=== PATIENT | male | born 1950 | race Caucasian/White ===

== ENCOUNTER 2017-08-23 20:03 | Inpatient (IN) | payer OTHER, MEDICARE, SELFPAY ==
[2017-08-23] VITALS (10 sets, daily range): BP systolic 131–137; BP diastolic 75–90; PULSE 68–90; RESP 12–16; TEMP 36.7–36.9; O2SAT 96–100; BMI 20.3
--- NOTE | 2017-08-23 20:34 | CT_ITS ---
STUDY: CT BRAIN WITHOUT CONTRAST REASON FOR EXAM: Male, 67 years old. Slurred speech, now resolved RADIATION DOSAGE (If Supplied By Facility): CTDIvol = ( 44.99 ) mGy, DLP = ( 812.98 ) mGycm TECHNIQUE: Transaxial CT imaging of the brain was performed without administration of intravenous contrast material. Individualized dose optimization techniques were used for this CT. COMPARISON: None. FINDINGS: The soft tissues are unremarkable. The osseous structures are unremarkable. Normal size ventricles and extra-axial spaces for the patient's age. The white matter tracts are unremarkable. The basal ganglia and thalami are unremarkable. No abnormalities are seen in the brainstem. The cerebellum is unremarkable. There is no intracranial hemorrhage. There is asymmetric hypodensity in the left occipital and posterior parietal lobes. The visualized sinuses are unremarkable. CT/Brain/Head without Contrast IMPRESSION: There is asymmetric hypodensity in the left occipital and posterior parietal lobes, worrisome for acute or subacute ischemia. There is no acute hemorrhage. N.B. : The above information has been verbally conveyed by Shanti Lord MD to Abhinav Gunn, Referring Physician, on 08/23/2017 22:00:30 (ET). Electronically Signed: Shanti Lord MD at 22:02 EDT Tel Direct: [phone], Service support , N.B. : The above information has been verbally conveyed by Shanti Lord MD to Abhinav Gunn, Referring Physician, on 08/23/2017 22:00:30 (ET).
--- NOTE | 2017-08-23 20:34 | EKG12_ITS ---
Test Reason : WEAKNESS Blood Pressure : / mmHG Vent. Rate : 071 BPM Atrial Rate : 071 BPM P-R Int : 106 ms QRS Dur : 122 ms QT Int : 426 ms P-R-T Axes : 063 080 062 degrees QTc Int : 462 ms Sinus rhythm with short CT Right bundle branch block Abnormal ECG Confirmed by GENE DAN, ANGELA ([id number]), editor department JOSH HUMPHRIES ([id number]) on 08/26/2017 4:10:10 PM Referred By: CHUY Confirmed By:ANGELA MILLS MD
--- NOTE | 2017-08-23 20:34 | RAD_ITS ---
STUDY: X-RAY CHEST REASON FOR EXAM: Male, 67 years old. Pain TECHNIQUE: Frontal views of the chest were obtained. COMPARISON: May 01, 2016 FINDINGS: The lungs are adequately aerated. There are no focal airspace opacities. There is no demonstrated pleural abnormality. The cardiac silhouette is normal in size. The mediastinum and hilar regions are unremarkable. Normal visualized pulmonary arteries. Normal visualized aortic arch and descending thoracic aorta. The thoracic spine is unremarkable. The visualized ribs, clavicles, and shoulders are unremarkable. There may be a hiatal hernia. RAD/Chest 1 View IMPRESSION: No acute cardiopulmonary abnormalities or changes. Electronically Signed: Shanti Lord MD at 21:18 EDT Tel Direct: [phone], Service support ,
--- NOTE | 2017-08-23 20:34 | ED.VISSUMM ---
- ER Visit Summary Date of Service: 08/23/17 Chief Complaint: Slurred speech, nausea History of Present Illness: The patient is a 67 M history of esophageal cancer diagnosed June 2016, esophagectomy in October 2016. Followed by [facility] in [place]. Does see Dr. Streeter in [facility]. Did do chemoradiation. No current treatment. Intermittent nausea for 3 days. No abdominal pain. Currently resolved. No vomiting. Intermittent loose stools recently. No recent antibiotics. No fevers. Here with significant other who was a nurse, states he had slurred speech lasting 5 minutes from 725-730. There is no hemiparesis or facial tingling. No stroke history. He does take a baby aspirin. Currently denies any symptoms. Physical Examination: General: Alert and oriented ?3, no acute distress HEENT: Normocephalic, atraumatic. Moist mucosa membranes Neck: supple, nontender. Cardiovascular: Regular rate and rhythm, no murmurs Respiratory: Normal breath sounds, symmetric, no distress Abdomen: Soft, nontender, nondistended. Normal bowel sounds Extremities: Nontender, no edema, pulses intact ?4 Neuro: no focal neurological deficits. NIH equals 0 Test Results: EKG sinus rate of 71, right bundle branch block, no ST or T-wave changes. Hemoglobin 12.6. INR 1.1. Troponin less than 0.02. Chest x-ray negative. CT head and discussion radiology concern for left occipital and left posterior parietal subacute versus acute hypodensity. Emergency Department Course and Treatment: Patient's symptoms currently resolved. Primary complaint today is transient slurred speech lasting 5 minutes. NIH equals 0. EKG is sinus rhythm with chronic right bundle branch block. Stroke workup discussion radiology reported acute versus subacute left occipital and posterior left parietal hypodensity concerning for stroke. States did not correlate with his slurred speech. In discussion with spouse and patient he had a headache a week ago that was diffuse. There is no head injuries. No visual changes. Has been no memory deficits. He has no stroke history. Currently hospitalist on page for admission for further workup. [place] was contacted states they have no beds. Treatment Plan: [] Disposition: Admission Impression: 1. CVA This note was generated with [employer] ([employer]ation software. It may contain incorrect words, spelling, and punctuation that were not noted in review of the chart prior to signing ED Disposition - Plan for ED Patient: Disposition: Acute Care Hospital [facility] Chief Complaint: Abd Pain Diagnosis: CVA (cerebral vascular accident) Referrals: Care Physician,No Primary [NON-STAFF] -
[2017-08-23 20:52] LABS: Absolute Lymphocyte Count 1.01 X10^3/ul (0.83-4.51); Absolute Neutrophil Count 4.1 X10^3/uL (2.0-7.7); Basophil# 0.02 X10^3/uL; Basophil% 0.3 % (0-1); Eosinophil# 0.11 X10^3/uL; Eosinophils% 1.9 % (0-5); Hematocrit 37.1 % (40-54); Hemoglobin 12.6 g/dl (13.0-16.5); Lymphocyte # 1.01 X10^3/ul (4.0); Lymphocyte % 17.6 % (19-41); Mean Corpuscular Hgb 31.3 pg (27.0-32.0); Mean Corpuscular Volume 92.1 fL (80-94); Mean Platelet Vol. 8.4 fl (6.2-12.0); Monocyte# 0.45 X10^3/uL; Monocyte% 7.8 % (0-10); Neutrophil # 4.14 X10^3/uL (2.7-7.7); Neutrophil % 72.2 % (47-70); POSITIVE COUNT NO; POSITIVE DIFFERENTIAL NO; POSITIVE MORPHOLOGY NO; Platelet Count 222 K/mm3 (150-450); RBC Distribution Width CV 11.9 % (11.6-14.6); RBC Distribution Width SD 40.3 fl (35.1-43.9); Red Blood Count 4.03 M/mm3 (4.6-6.2); White Blood Count 5.7 K/mm3 (4.4-11.0)
[2017-08-23 20:59] LABS: International Normalized Ratio 1.1; Prothrombin Time (Protime)PT. 14.2 SECONDS (11.7-14.9)
[2017-08-23 21:00] LABS: Partial Thromboplast Time 28.9 Seconds (24.1-36.2)
[2017-08-23 21:37] LABS: Anion Gap 8 (5-15); BUN 15 mg/dL (7-18); Calcium,Total 8.8 mg/dL (8.5-10.1); Chloride 105 mmol/L (98-107); Creatinine, Serum 0.68 mg/dL (0.70-1.30); EST Glomerular Filtration Rate 123 mL/min (>60); Est Glom Filt Rate - Afr Amer 149 mL/min (>60); Estimated Creatinine Clearance 63.47 ml/min; Glucose 83 mg/dL (74-106); Potassium 3.6 mmol/L (3.5-5.1); Sodium Level 139 mmol/L (136-145)
--- NOTE | 2017-08-23 22:14 | ED.RN ---
CALLED [facility] TO SEE IF THEY COLD TAKE HIM A PATIENT AND THEY SAID THEY ARE NOT ACCEPTING ANY PATIENTS AT THIS TIME.
--- NOTE | 2017-08-23 22:56 | HP.PCM_ITS ---
Problem List (1) HTN (hypertension) Status: Chronic (2) CVA (cerebral vascular accident) Status: Acute (3) Lipidemia Status: Acute History of Present Illness Date of Admission: 08/23/17 Chief Complaint: CVA The patient is a 67 year old male w/ h/o HTN, esophageal cancer s/p esophagectomy in October 2016 and chemoradiation, and lipidemia admitted for CVA. Last Thursday, he had severe headache which he never had before. Nothing made the headache better or worse. Headache spontaneously resolved. He had intermitted nausea x 3 days and that too resolved. He also had loose stool. This evening hours when he tried to get up from sitting position, he became lightheaded and slurred his speech. However, when he sat back down, he noted improvement of his symptoms and symptoms resolved when he lay down. Symptoms lasted for a few minutes and spontaneously resolved. Past Medical History Past Medical History (Chronic Problems): Chronic Problems HTN (hypertension) (Chronic) Allergies Sulfa (Sulfonamide Antibiotics) Allergy (Verified 08/23/17 20:09) Nausea/Vom/Diarrhea Home Medications: Ambulatory Orders Medication Instructions Recorded Aspirin 81 mg PO DAILY 05/01/16 Atorvastatin Calcium [Lipitor] 10 mg PO DAILY 05/01/16 Multivitamin [Animal Shapes] 1 each PO DAILY 05/01/16 Ubidecarenone [Co Q-10] 100 mg PO DAILY 05/01/16 Ascorbic Acid [Vitamin C] 250 mg PO BID 08/23/17 Ferrous Sulfate 325 mg PO BIDCM 08/23/17 Ondansetron [Zofran] 8 mg PO Q8H PRN PRN 08/23/17 Lives: Spouse/ Significant Other Smoking Status: Former smoker Alcohol: None Drugs: None - *Family History Maternal History Items: No pertinent history Review of Systems Constitutional: Denies: Chills, Fever, Weight Change HEENT: Denies: Head Aches, Sinus Congestion, Sinus Drainage Cardiovascular: Denies: Chest Pain, Palpitations Respiratory: Denies: Cough, Shortness of breath at rest, Sputum production Gastrointestinal: Denies: Abdominal Pain, Nausea, Vomiting Genitourinary: Denies: Dysuria Musculoskeletal: Denies: Joint Pain, Joint Tenderness Skin: Denies: Rash, Wounds Neurological: Reports: Slurred speech. Denies: Focal weakness, Numbness, Tingling Psychiatric: Denies: Anxiety, Depression, Homicidal Ideations, Suicidal Ideations Hematologic/ Lymphatic: Denies: Easy Bruising, Easy Bleeding VTE Information - Inpt Only VTE Present on Admission: No VTE Mechan Device Prophylaxis: SCD's VTE Pharm Prophylaxis ordered?: Yes Patient Problems: Active and Suspected Problems CVA (cerebral vascular accident) (Acute) Lipidemia (Acute) - Physical Exam General: Alert, Oriented x3, Cooperative HEENT: Atraumatic, PERRLA, EOMI, Normocephalic Neck: Supple, No JVD, Negative Carotid Bruits Lungs: Clear to auscultation, Normal air movement Cardiovascular: Regular rate, No murmurs Abdomen: Bowel Sounds Present, Soft, Non Tender Extremities: No edema, Capillary Refill Less than 3 Seconds Skin: No rashes, No breakdown Musculoskeletal: No Tenderness to Palpation of Joints or Extremities Neurological: Cranial nerves II-XII grossly intact Psych/Mental Status: Normal Affect, Appropriate Vital Signs Temp Pulse Resp BP Pulse Ox 98.5 F 68 14 135/90 H 98 08/23/17 20:04 08/23/17 22:30 08/23/17 22:30 08/23/17 22:30 08/23/17 22:30 Oxygen Delivery Method Room Air Weight: 62.596 kg Body Mass Index (BMI) 20.3 Laboratory Tests Past 24 Hrs 08/23/17 08/23/17 08/23/17 20:40 20:40 20:40 WBC 5.7 RBC 4.03 L Hgb 12.6 L Hct 37.1 L MCV 92.1 MCH 31.3 MCHC 34.0 RDW 11.9 RDW Differential 40.3 Plt Count 222 MPV 8.4 Immature Gran % (Auto) 0.200 Neut % (Auto) 72.2 H Lymph % (Auto) 17.6 L Greer % (Auto) 7.8 Eos % (Auto) 1.9 Baso % (Auto) 0.3 Absolute Neuts (auto) 4.1 Absolute Lymphs (auto) 1.01 Total Counted Not Reportable PT 14.2 INR 1.1 APTT 28.9 Sodium 139 Potassium 3.6 Chloride 105 Carbon Dioxide 26.0 Anion Gap 8 BUN 15 Creatinine 0.68 L Estim Creat Clear Calc 63.47 Est GFR (MDRD) Af Amer 149 Est GFR (MDRD) Non-Af 123 BUN/Creatinine Ratio 22.0 H Glucose 83 Calcium 8.8 Troponin I < 0.02 Assessment/Plan Active and Suspected Problems CVA (cerebral vascular accident) (Acute) Lipidemia (Acute) 67 year old male w/ h/o HTN, esophageal cancer s/p esophagectomy in October 2016 and chemoradiation, and lipidemia admitted for CVA. 1) Slurred speech / dizziness: CVA vs orthostatic hypotension. CT brain disclosed asymmetric hypodensity in the left occipital and posterior parietal lobes, worrisome for acute or subacute ischemia. Will get MRI, ECHO and carotid. Will start ASA and statin. Consult neuro. 2) HTN: Resume home meds. Allow for permissive HTN. 3) H/o esophageal cancer s/p esophagectomy in October 2016 and chemoradiation: Supportive care. 4) Non sustained SVT: K 3.8 Will get magnesium. Will get trop x 1 Will consider betablocker if reoccurring. Monitor for now. 5) Prophylaxis: SCD / heparin
[2017-08-24] VITALS (14 sets, daily range): BP systolic 98–142; BP diastolic 61–86; PULSE 66–94; RESP 18; TEMP 36.3–37.3; O2SAT 96–99
[2017-08-24] MEDS: 0.9% Normal Saline 1,000 ML 100 ML IV ×3 (00:36→22:53)
[2017-08-24 04:09] LABS: Hematocrit 35.3 % (40-54); Hemoglobin 12.1 g/dl (13.0-16.5); Mean Corp Hgb Conc 34.3 g/gl (32-36); Mean Corpuscular Hgb 31.2 pg (27.0-32.0); Mean Platelet Vol. 8.4 fl (6.2-12.0); Platelet Count 246 K/mm3 (150-450); RBC Distribution Width SD 39.6 fl (35.1-43.9); Red Blood Count 3.88 M/mm3 (4.6-6.2); White Blood Count 5.6 K/mm3 (4.4-11.0)
[2017-08-24 04:10] LABS: Scan Indicated on CBC? Y/N NO
[2017-08-24] MEDS: Acetaminophen 325 MG Tablet 650 MG PO ×2 (04:17→20:32)
[2017-08-24 04:24] LABS: Anion Gap 10 (5-15); BUN 12 mg/dL (7-18); BUN/Creat Ratio 20.3 RATIO (10-20); Calcium,Total 8.9 mg/dL (8.5-10.1); Chloride 106 mmol/L (98-107); Cholesterol 87 mg/dL (200); Creatinine, Serum 0.59 mg/dL (0.70-1.30); EST Glomerular Filtration Rate 145 mL/min (>60); Est Glom Filt Rate - Afr Amer 176 mL/min (>60); Estimated Creatinine Clearance 62.25 ml/min; Glucose 85 mg/dL (74-106); High Density Lipoprotein 54 mg/dL; Potassium 3.8 mmol/L (3.5-5.1); Sodium Level 140 mmol/L (136-145); Triglycerides 48 mg/dL; Very Low Density Lipoprotein 10 mg/dL (5-40)
[2017-08-24 05:54] LABS: Magnesium 2.1 mg/dL (1.6-2.6)
--- NOTE | 2017-08-24 05:55 | CDU_ITS ---
Reason For Study: CVA Rt. Velocities/BP Lt. Velocities/BP Prox CCA 74/16 cm/sec. Prox CCA 83/17 cm/sec. Mid CCA 79/18 cm/sec. Mid CCA 105/25 cm/sec. Dist CCA 71/19 cm/sec. Dist CCA 85/16 cm/sec. Prox ICA 74/28 cm/sec. Prox ICA 110/35 cm/sec. Mid ICA 69/28 cm/sec. Mid ICA 145/46 cm/sec. Dist ICA 79/33 cm/sec. Dist ICA 93/28 cm/sec. Rt. ICA/CCA = 1.0. Lt. ICA/CCA = 1.4. Prox ECA 88/13 cm/sec. Prox ECA 112/17 cm/sec. Rt. Vert. 34/1 cm/sec. Lt. Vert. 81/20 cm/sec. Right Extracranial There is intimal thickening but no significant atherosclerotic plaque noted in the right common carotid artery. There is intimal thickening but no significant atherosclerotic plaque noted in the right internal carotid artery. There is intimal thickening but no significant atherosclerotic plaque noted in the right external carotid artery. Antegrade flow is noted in the right vertebral artery. Left Extracranial There is intimal thickening but no significant atherosclerotic plaque noted in the left common carotid artery. There is heterogeneous, irregular atherosclerotic plaque noted in the left internal carotid artery. There is heterogeneous, irregular atherosclerotic plaque noted in the left external carotid artery. Antegrade flow is noted in the left vertebral artery. There is heterogeneous, irregular atherosclerotic plaque noted in the left bulb. Procedure Carotid Duplex 70200. Exam performed portable in patient room. Interpretation Summary No significant atherosclerotic plaque or stenosis noted in the right internal carotid artery. Mild (<50%) stenosis left extracranial internal carotid. Flow within the vertebral arteries is antegrade bilaterally. Ordering Physician: Heath Lla Performed By: Darlene Melendez, RDREID, RVT
--- NOTE | 2017-08-24 05:55 | ECHOD_ITS ---
Reason For Study: TIA/CVA Procedure This was a 2D Doppler, Color Flow transthoracic echocardiogram. Exam performed portable in patient room. Left Ventricle Normal LV size. Left ventricular systolic function is normal. The estimated ejection fraction is 60 %. No regional wall motion abnormalities noted. Right Ventricle Normal RV size. Normal systolic function. Atria Normal left atrium. Normal right atrium. Bubble contrast study negative for right to left interatrial shunt. Mitral Valve Normal mitral valve. Tricuspid Valve Normal tricuspid valve. Mild tricuspid valve insufficiency. Pulmonary artery systolic pressure is 27 mmHg. Aortic Valve Normal aortic valve. Trisinus/trileaflet aortic valve. Pulmonic Valve Normal pulmonic valve. Great Vessels Normal aortic root. The pulmonary artery is normal size. Normal inferior vena cava. Pericardium/Pleural No pericardial effusion. Medication Performed a rapid injection of agitated mix of 9 cc saline and 1cc air to assess for atrial septal defect. MMode/2D Measurements & Calculations LVIDd: 4.4 cm IVSd: 0.80 cm Ao root diam: 3.6 cm LVIDs: 3.0 cm LVPWd: 0.83 cm LA dimension: 3.8 cm RVDd: 3.0 cm FS: 32.1 % LAV(MOD-bp): 37.7 ml LAV(MOD-bp) Indexed: 21.4 ml/m2 LA A4 area: 15.2 cm2 RA A4 area: 13.9 cm2 LAV(MOD-sp2): 26.6 ml LAV(MOD-sp4): 43.7 ml Doppler Measurements & Calculations MV E max bartolome: 81.2 cm/sec Lat Peak E' Bartolome: 7.5 cm/sec Med Peak E' Bartolome: 8.5 cm/sec MV A max bartolome: 75.1 cm/sec E/E' lat: 10.8 E/E' med: 9.6 MV E/A: 1.1 Ao V2 max: 134.8 cm/sec LV V1 max: 102.7 cm/sec PA V2 max: 111.7 cm/sec Ao max P.3 mmHg LV V1 max P.2 mmHg TR max bartolome: 236.4 cm/sec TR max P.7 mmHg Interpretation Summary Normal LV size. Left ventricular systolic function is normal. The estimated ejection fraction is 60 %. Bubble contrast study negative for right to left interatrial shunt. Mild tricuspid valve insufficiency. Pulmonary artery systolic pressure is 27 mmHg. Ordering Physician: Heath Lal Performed By: Rika Alegria RDCS
--- NOTE | 2017-08-24 06:56 | MRI_ITS ---
STUDY: MRI BRAIN WITHOUT CONTRAST REASON FOR EXAM: Male, 67 years old. Headache, dizziness and blurred vision. TECHNIQUE: Standardized multiplanar fat and water weighted pulse sequences were obtained. COMPARISON: None. FINDINGS: There is mild cerebral atrophy with widening of the extra-axial spaces and ventricular dilatation. There are a limited number of small white matter hyperintensities, distributed throughout the deep white matter tracts of the cerebral hemispheres, consistent with mild chronic white matter ischemic changes. There is a restricted diffusion within the medial and posterior left temporal lobe and left occipital lobe consistent with an acute infarct. Normal T2* images of the brain without demonstrated susceptibility artifact. There is no demonstrated hemosiderin stain. Normal bilateral basal ganglia. Normal thalami. There is no extra-axial fluid accumulation. Normal flow voids within the major intracranial circulation suggesting patency by spin echo criteria. Normal sella turcica, pituitary gland, infundibular stalk, optic chiasm and hypothalamus. Normal tectal plate and pineal gland. Normal midbrain, wanda and medulla. There are mild involutional changes of the cerebellum. There are large basal cisterns. Normal bilateral temporal bones. Normal bilateral internal auditory canals. No demonstrated orbital abnormality, within the constraints of a routine brain study. There is mucoperiosteal inflammatory disease of the paranasal sinuses consistent with mild chronic sinusitis. Normal calvarium and skull base. Normal visualized soft tissue structures. Normal visualized upper cervical spine. MRI/Brain without Contrast IMPRESSION: 1. Involutional changes of the brain, as described above. 2. Acute left posterior cerebral artery territory infarct. Electronically Signed: Claudine Neal MD at 8:22 EDT , Service support ,
--- NOTE | 2017-08-24 07:45 | PCM.PROGNOTE ---
Patient Problems: Active and Suspected Problems CVA (cerebral vascular accident) (Acute) Lipidemia (Acute) Stroke (Acute) Subjective: Patient is a 67-year-old male with a past medical history of hypertension, esophageal cancer (status post esophagectomy in October 2016), and hyperlipidemia who presented to the emergency room department at [facility] on 08/23/2024 complaining of lightheadedness and slurred speech when he stood up. When he sat down and his symptoms improved. He related that he had a severe headache 1 week prior to presentation to the emergency room and this was followed by nausea and loose stool for 3 days. Nausea, cephalgia and loose stool had all resolved prior to presenting to the emergency room. Vital signs at presentation to the emergency room were temperature 98.5, pulse rate 84, blood pressure 133/85, respiratory rate 16 and he was 98% saturated on room air. White blood cell count was normal at 5.7 with an unremarkable differential. Hemoglobin was 12.6 with normochromic normocytic indices. Platelet count was normal. Electrolytes were normal and the BUN was 15 with a creatinine of 0.68. Serial troponins were negative ?3. Brain CT showed an asymmetric hypodensity in the left occipital and posterior parietal lobes suspicious for acute or subacute ischemia. He was admitted to the hospital with a diagnosis of suspected CVA and orthostatic hypotension. He was started on aspirin and a statin. Neurology was consulted. MRI of the brain, echo and carotid studies were ordered. Afebrile since admission. Blood pressures have ranged from 108/70 -137/90. Blood pressure did drop to 108/70 from 125/76 with standing. Lipid panel showed triglycerides of 48, cholesterol of 87, LDL of 23 and an HDL of 54. MRI of the brain has been done and the results are pending. - Physical Exam General: Alert, Oriented x3, Cooperative, No apparent distress, - - denies lightheadedness. He did ambulate today and thinks he did well. HEENT: Atraumatic, PERRLA, EOMI, Normocephalic Oral: Moist Mucosa Neck: Supple, Negative Carotid Bruits, - - Carotids have brisk upstroke and good pulse volume bilaterally Lungs: Clear to auscultation Cardiovascular: Regular rate, Regular Rhythm, Normal S1, Normal S2, No Gallop, - - Telemetry shows NSR with a run of what appears to be SVT......seems to have started with a PAC it was asymptomatic Abdomen: Bowel Sounds Present, Soft, Non Tender, Non-Distended Extremities: No edema Neurological: Cranial nerves II-XII grossly intact, Neuro grossly intact Psych/Mental Status: Appropriate Vital Signs Temp Pulse Resp BP Pulse Ox 97.4 F L 73 18 125/76 H 96 08/24/17 04:15 08/24/17 04:15 08/24/17 04:15 08/24/17 04:15 08/24/17 04:15 Oxygen Delivery Method Room Air Weight: 135 lb 5.821 oz Body Mass Index (BMI) 20.0 Orthostatic Vital Signs Start: 08/24/17 04:09 Freq: q24h Status: Active Protocol: Activity Type Activity Date Activity User E-Sign Co-Sign Detail Recorded Client Recorded Date Recorded By Document 08/24/17 04:09 [facility] [id number] 08/24/17 04:12 [facility] 08/24/17 04:09 Orthostatic Vitals Standing -Blood Pressure (90/60-120/80 mm Hg) 108/70 -Extremity Use Right Arm -Pulse Rate (60-100 beats/min) 83 Sitting -Blood Pressure (90/60-120/80 mm Hg) 128/86 H -Extremity Use Right Arm -Pulse Rate (60-100 beats/min) 77 Lying -Blood Pressure (90/60-120/80 mm Hg) 125/76 H -Extremity Use Right Arm -Pulse Rate (60-100 beats/min) 73 Intake and Output for Last 24 Hours 08/22/17 08/23/17 08/24/17 22:59 23:59 23:59 Intake Total 487 / 487 Output Total 350 / 350 Balance 137 / 137 Laboratory Tests Past 24 Hrs 08/23/17 08/24/17 08/24/17 23:49 03:54 03:54 WBC 5.6 RBC 3.88 L Hgb 12.1 L Hct 35.3 L MCV 91.0 MCH 31.2 MCHC 34.3 RDW 12.0 RDW Differential 39.6 Plt Count 246 MPV 8.4 Sodium 140 Potassium 3.8 Chloride 106 Carbon Dioxide 24.0 Anion Gap 10 BUN 12 Creatinine 0.59 L Estim Creat Clear Calc 62.25 Est GFR (MDRD) Af Amer 176 Est GFR (MDRD) Non-Af 145 BUN/Creatinine Ratio 20.3 H Glucose 85 Calcium 8.9 Magnesium Troponin I < 0.02 Triglycerides 48 Cholesterol 87 LDL Cholesterol 23 VLDL Cholesterol 10 HDL Cholesterol 54 08/24/17 08/24/17 08/24/17 03:54 03:54 06:10 WBC RBC Hgb Hct MCV MCH MCHC RDW RDW Differential Plt Count MPV Sodium Potassium Chloride Carbon Dioxide Anion Gap BUN Creatinine Estim Creat Clear Calc Est GFR (MDRD) Af Amer Est GFR (MDRD) Non-Af BUN/Creatinine Ratio Glucose Calcium Magnesium 2.1 Troponin I < 0.02 < 0.02 Triglycerides Cholesterol LDL Cholesterol VLDL Cholesterol HDL Cholesterol Assessment/Plan Active and Suspected Problems CVA (cerebral vascular accident) (Acute) Lipidemia (Acute) Stroke (Acute) Pt was seen independently and in conjunction with Lincoln ZHANG. NIH is 0. I agree with Lincoln's impressions and we have discussed the plan. Orders have been written. awaiting results of MRI and consult by Dr. Means.
[2017-08-24] MEDS: Multivitamins,Therapeutic Tablet 1 TABLET PO (08:11)
[2017-08-24] MEDS: Ferrous Sulfate 325 MG Tablet PO ×2 (08:11→16:28)
[2017-08-24] MEDS: Ascorbic Acid 500 MG Tablet 250 MG PO ×2 (08:12→20:37)
[2017-08-24] MEDS: Aspirin 81 MG TAB.CHEW PO (08:12)
--- NOTE | 2017-08-24 13:32 | CT_ITS ---
STUDY: CTA NECK WITH CONTRAST REASON FOR EXAM: Male, 67 years old. Intermittent nausea for 3 days. Patient had episode of slurred speech and lightheadedness. RADIATION DOSAGE (If Supplied By Facility): CTDIvol = ( 31.69 ) mGy, DLP = ( 1409.39 ) mGycm TECHNIQUE: CT angiography with multi-detector data acquisition was performed from the aortic arch to the skull base following intravenous administration of 100 ml of Isovue 370 contrast. MIP images were reconstructed from the axial data set. Post-processing of the angiographic images was performed, with multiplanar reformation and 3D reconstruction. Individualized dose optimization techniques were used for this CT. COMPARISON: MRI of the brain dated August 24, 2017. FINDINGS: AORTIC ARCH: Normal visualized aortic arch. Normal origins of the brachiocephalic, left common carotid, and left subclavian arteries. RIGHT CAROTID ARTERIES: Normal right common carotid artery (CCA). Normal right common carotid bulb. Normal origin of the right internal carotid (ICA) artery without a hemodynamically significant stenosis. Normal visualized cervical portion of the right internal carotid artery. Normal origin of the right external carotid artery (ECA). LEFT CAROTID ARTERIES: Normal left common carotid artery (CCA). There is mild atherosclerotic plaque formation with minimal narrowing of the left carotid bulb. There is a hemodynamically significant stenosis of the proximal left internal carotid artery. Estimated amount stenosis is approximately 60%. Normal visualized cervical portion of the left internal carotid artery. Normal origin of the left external carotid artery (ECA). VERTEBRAL ARTERIES: There is apparent occlusion of the left vertebral artery with lack of enhancement. There may be some retrograde blood flow opacifying the upper right vertebral artery. The left vertebral artery is dominant and there may be a hemodynamically significant stenosis of the origin of the left vertebral artery. CT/CTA Neck W/WO Contrast IMPRESSION: 1. Probable occlusion and possible thrombosis of the right vertebral artery. 2. Possible hemodynamically significant stenosis of the origin of the left vertebral artery. 3. Hemodynamically significant stenosis of the proximal left internal carotid artery. Electronically Signed: Claudine Neal MD at 15:51 EDT , Service support ,
--- NOTE | 2017-08-24 13:32 | CT_ITS ---
STUDY: CTA OF THE BRAIN REASON FOR EXAM: Male, 67 years old. Acute left [employer] infarct RADIATION DOSAGE (If Supplied By Facility): CTDIvol = ( 31.69 ) mGy, DLP = ( 1409.39 ) mGycm TECHNIQUE: CT angiography was performed with a multi-detector CT scanner. Data acquisition was obtained from the skull base through the vertex following intravenous administration of 100 ml of Isovue 370. MIP images were reconstructed from the axial data set. Post-processing of the angiographic images was performed, with multiplanar reformation and 3D reconstruction. Individualized dose optimization techniques were used for this CT. COMPARISON: Head CT without contrast dated August 23, 2017; brain MRI from today FINDINGS: The petrous carotid arteries are normal in appearance. Normal right cavernous carotid artery with a normal supraclinoid bifurcation. Normal left cavernous carotid artery with a normal supraclinoid bifurcation. Normal right A1 segment of the anterior cerebral artery. Normal left A1 segment of the anterior cerebral artery. Normal intact anterior communicating artery (ACOM). Normal bilateral A2 segments of the anterior cerebral arteries. Normal right M1 and M2 segments of the middle cerebral arteries, with a normal M1 bifurcation. Normal left M1 and M2 segments of the middle cerebral arteries, with a normal M1 bifurcation. Normal right posterior communicating artery (PCOM). Normal left posterior communicating artery (PCOM). Normal bilateral distal vertebral arteries. There is minimal filling defect in the distal basilar artery on the right side. There is lack of contrast in the proximal right superior cerebellar artery. Normal bilateral P1, P2 and visualized P3 segments of the posterior cerebral arteries. There is no demonstrated aneurysm of the [place]. There is subtle enhancement in the region of ischemia which is within normal limits. This is due to hyperemia of the area. CT/CTA Head W/WO Contrast IMPRESSION: There is clot in the distal basilar artery on the right side extending into the proximal right superior cerebellar artery. This vessel then reconstitutes in the mid aspect by collaterals. No other clot is seen. The left posterior cerebral artery is patent. Electronically Signed: Shanti Lord MD at 15:54 EDT Tel Direct: [phone], Service support ,
--- NOTE | 2017-08-24 13:58 | PCM.PROGNOTE ---
Patient Problems: Active and Suspected Problems CVA (cerebral vascular accident) (Acute) Lipidemia (Acute) Subjective: Pt came to the hospital with slurred speech and lightheadedness. He had a severe SHARPE last Thursday. He currently denies these symptoms and also denies blurry vision, diplopia, focal weakness, difficulty ambulating, difficulty swallowing, palpitations, and Chest pain. - Physical Exam General: Alert, Oriented x3, Cooperative HEENT: Atraumatic, PERRLA, EOMI, Normocephalic Neck: Supple, No JVD, Negative Carotid Bruits Lungs: Clear to auscultation, Normal air movement Cardiovascular: Regular rate, No murmurs Abdomen: Bowel Sounds Present, Soft, Non Tender Extremities: No edema, Capillary Refill Less than 3 Seconds Skin: No rashes, No breakdown Musculoskeletal: No Tenderness to Palpation of Joints or Extremities Neurological: Cranial nerves II-XII grossly intact Psych/Mental Status: Normal Affect, Appropriate, Alert and oriented to time, place, person, mood and affect Vital Signs Temp Pulse Resp BP Pulse Ox 98.7 F 71 18 142/79 H 98 08/24/17 12:14 08/24/17 12:14 08/24/17 12:14 08/24/17 12:14 08/24/17 12:14 Oxygen Delivery Method Room Air Weight: 61.4 kg Body Mass Index (BMI) 20.0 Orthostatic Vital Signs Start: 08/24/17 04:09 Freq: q24h Status: Active Protocol: Activity Type Activity Date Activity User E-Sign Co-Sign Detail Recorded Client Recorded Date Recorded By Document 08/24/17 04:09 [facility] [id number] 08/24/17 04:12 [facility] 08/24/17 04:09 Orthostatic Vitals Standing -Blood Pressure (90/60-120/80) 108/70 -Extremity Use Right Arm -Pulse Rate (60-100) 83 Sitting -Blood Pressure (90/60-120/80) 128/86 H -Extremity Use Right Arm -Pulse Rate (60-100) 77 Lying -Blood Pressure (90/60-120/80) 125/76 H -Extremity Use Right Arm -Pulse Rate (60-100) 73 Intake and Output for Last 24 Hours 08/22/17 08/23/17 08/24/17 22:59 23:59 23:59 Intake Total 1216 / 1216 Output Total 350 / 350 Balance 866 / 866 Laboratory Tests Past 24 Hrs 08/23/17 08/24/17 08/24/17 23:49 03:54 03:54 WBC 5.6 RBC 3.88 L Hgb 12.1 L Hct 35.3 L MCV 91.0 MCH 31.2 MCHC 34.3 RDW 12.0 RDW Differential 39.6 Plt Count 246 MPV 8.4 Sodium 140 Potassium 3.8 Chloride 106 Carbon Dioxide 24.0 Anion Gap 10 BUN 12 Creatinine 0.59 L Estim Creat Clear Calc 62.25 Est GFR (MDRD) Af Amer 176 Est GFR (MDRD) Non-Af 145 BUN/Creatinine Ratio 20.3 H Glucose 85 Hemoglobin A1c Calcium 8.9 Magnesium Troponin I < 0.02 Triglycerides 48 Cholesterol 87 LDL Cholesterol 23 VLDL Cholesterol 10 HDL Cholesterol 54 08/24/17 08/24/17 08/24/17 03:54 03:54 03:54 WBC RBC Hgb Hct MCV MCH MCHC RDW RDW Differential Plt Count MPV Sodium Potassium Chloride Carbon Dioxide Anion Gap BUN Creatinine Estim Creat Clear Calc Est GFR (MDRD) Af Amer Est GFR (MDRD) Non-Af BUN/Creatinine Ratio Glucose Hemoglobin A1c Pending Calcium Magnesium 2.1 Troponin I < 0.02 Triglycerides Cholesterol LDL Cholesterol VLDL Cholesterol HDL Cholesterol 08/24/17 08/24/17 06:10 09:35 WBC RBC Hgb Hct MCV MCH MCHC RDW RDW Differential Plt Count MPV Sodium Potassium Chloride Carbon Dioxide Anion Gap BUN Creatinine Estim Creat Clear Calc Est GFR (MDRD) Af Amer Est GFR (MDRD) Non-Af BUN/Creatinine Ratio Glucose Hemoglobin A1c Calcium Magnesium Troponin I < 0.02 < 0.02 Triglycerides Cholesterol LDL Cholesterol VLDL Cholesterol HDL Cholesterol Assessment/Plan Active and Suspected Problems CVA (cerebral vascular accident) (Acute) Lipidemia (Acute) 1. Acute left posterior cerebral artery infarct-neuro following. His symptoms seem to his resolved at this point. Patient is on statin-this is been maximized, aspirin. Continue PT OT ST. Echocardiogram shows EF 60%, negative bubble study, PAS P 27 mmHg, normal LV function and size. We will obtain CTA of the head and neck today. Carotid ultrasound is pending. Troponin is negative ?4, LDL is 23. Hemoglobin A1c is pending. 2. SVT-he appears to have had a brief episode of SVT on the monitor overnight. We will continue to monitor for further occurrences. Electrolytes are normal. EKG showed sinus rhythm with short NC, right bundle branch block. 3. Mild normocytic anemia-stable. On PO iron. 4. Hypertension-slightly elevated, allow permissive hypertension unless otherwise directed by neurology. 5. History of esophageal cancer status post esophagectomy in October 2016, chemoradiation. Speech therapy ok for regular/thin diet. DVT prophylaxis: Heparin Discharge planning: Patient denies focal or generalized weakness. We will see how he does with PT and OT. This patient was seen by Lincoln Csoby PA-C under the supervision of Doctor Hines.
--- NOTE | 2017-08-24 14:08 | PN_ITS ---
Patient Problems: Active and Suspected Problems CVA (cerebral vascular accident) (Acute) Lipidemia (Acute) Subjective: Pt came to the hospital with slurred speech and lightheadedness. He had a severe SHARPE last Thursday. He currently denies these symptoms and also denies blurry vision, diplopia, focal weakness, difficulty ambulating, difficulty swallowing, palpitations, and Chest pain. - Physical Exam General: Alert, Oriented x3, Cooperative HEENT: Atraumatic, PERRLA, EOMI, Normocephalic Neck: Supple, No JVD, Negative Carotid Bruits Lungs: Clear to auscultation, Normal air movement Cardiovascular: Regular rate, No murmurs Abdomen: Bowel Sounds Present, Soft, Non Tender Extremities: No edema, Capillary Refill Less than 3 Seconds Skin: No rashes, No breakdown Musculoskeletal: No Tenderness to Palpation of Joints or Extremities Neurological: Cranial nerves II-XII grossly intact Psych/Mental Status: Normal Affect, Appropriate, Alert and oriented to time, place, person, mood and affect Vital Signs Temp Pulse Resp BP Pulse Ox 98.7 F 71 18 142/79 H 98 08/24/17 12:14 08/24/17 12:14 08/24/17 12:14 08/24/17 12:14 08/24/17 12:14 Oxygen Delivery Method Room Air Weight: 61.4 kg Body Mass Index (BMI) 20.0 Orthostatic Vital Signs Start: 08/24/17 04:09 Freq: q24h Status: Active Protocol: Activity Type Activity Date Activity User E-Sign Co-Sign Detail Recorded Client Recorded Date Recorded By Document 08/24/17 04:09 [facility] [id number] 08/24/17 04:12 [facility] 08/24/17 04:09 Orthostatic Vitals Standing -Blood Pressure (90/60-120/80) 108/70 -Extremity Use Right Arm -Pulse Rate (60-100) 83 Sitting -Blood Pressure (90/60-120/80) 128/86 H -Extremity Use Right Arm -Pulse Rate (60-100) 77 Lying -Blood Pressure (90/60-120/80) 125/76 H -Extremity Use Right Arm -Pulse Rate (60-100) 73 Intake and Output for Last 24 Hours 08/22/17 08/23/17 08/24/17 22:59 23:59 23:59 Intake Total 1216 / 1216 Output Total 350 / 350 Balance 866 / 866 Laboratory Tests Past 24 Hrs 08/23/17 08/24/17 08/24/17 23:49 03:54 03:54 WBC 5.6 RBC 3.88 L Hgb 12.1 L Hct 35.3 L MCV 91.0 MCH 31.2 MCHC 34.3 RDW 12.0 RDW Differential 39.6 Plt Count 246 MPV 8.4 Sodium 140 Potassium 3.8 Chloride 106 Carbon Dioxide 24.0 Anion Gap 10 BUN 12 Creatinine 0.59 L Estim Creat Clear Calc 62.25 Est GFR (MDRD) Af Amer 176 Est GFR (MDRD) Non-Af 145 BUN/Creatinine Ratio 20.3 H Glucose 85 Hemoglobin A1c Calcium 8.9 Magnesium Troponin I < 0.02 Triglycerides 48 Cholesterol 87 LDL Cholesterol 23 VLDL Cholesterol 10 HDL Cholesterol 54 08/24/17 08/24/17 08/24/17 03:54 03:54 03:54 WBC RBC Hgb Hct MCV MCH MCHC RDW RDW Differential Plt Count MPV Sodium Potassium Chloride Carbon Dioxide Anion Gap BUN Creatinine Estim Creat Clear Calc Est GFR (MDRD) Af Amer Est GFR (MDRD) Non-Af BUN/Creatinine Ratio Glucose Hemoglobin A1c Pending Calcium Magnesium 2.1 Troponin I < 0.02 Triglycerides Cholesterol LDL Cholesterol VLDL Cholesterol HDL Cholesterol 08/24/17 08/24/17 06:10 09:35 WBC RBC Hgb Hct MCV MCH MCHC RDW RDW Differential Plt Count MPV Sodium Potassium Chloride Carbon Dioxide Anion Gap BUN Creatinine Estim Creat Clear Calc Est GFR (MDRD) Af Amer Est GFR (MDRD) Non-Af BUN/Creatinine Ratio Glucose Hemoglobin A1c Calcium Magnesium Troponin I < 0.02 < 0.02 Triglycerides Cholesterol LDL Cholesterol VLDL Cholesterol HDL Cholesterol Assessment/Plan Active and Suspected Problems CVA (cerebral vascular accident) (Acute) Lipidemia (Acute) 1. Acute left posterior cerebral artery infarct-neuro following. His symptoms seem to his resolved at this point. Patient is on statin-this is been maximized , aspirin. Continue PT OT ST. Echocardiogram shows EF 60%, negative bubble study, PAS P 27 mmHg, normal LV function and size. We will obtain CTA of the head and neck today. Carotid ultrasound is pending. Troponin is negative ?4, LDL is 23. Hemoglobin A1c is pending. 2. SVT-he appears to have had a brief episode of SVT on the monitor overnight. We will continue to monitor for further occurrences. Electrolytes are normal. EKG showed sinus rhythm with short VT, right bundle branch block. 3. Mild normocytic anemia-stable. On PO iron. 4. Hypertension-slightly elevated, allow permissive hypertension unless otherwise directed by neurology. 5. History of esophageal cancer status post esophagectomy in October 2016, chemoradiation. Speech therapy ok for regular/thin diet. DVT prophylaxis: Heparin Discharge planning: Patient denies focal or generalized weakness. We will see how he does with PT and OT. This patient was seen by Lincoln Cosby PA-C under the supervision of Doctor Hines.
--- NOTE | 2017-08-24 14:41 | CON.PCM_ITS ---
Problem List (1) Stroke Status: Acute Qualifiers: CVA mechanism: embolism Precerebral and cerebral artery: posterior cerebral artery Laterality of affected vessel: left Qualified Code(s): I63.432 - Cerebral infarction due to embolism of left posterior cerebral artery Reason for Consult Date of Consultation: 08/24/17 Reason for Consultation: Stroke History of Present Illness: The patient is a 67 year old CM with PMH HTN, HLD, oesophageal cancer diagnosed in June 2016, s/p chemoradiation and resection in October 2016 admitted with episode of light headedness and slurred speech lasting for about 4-5 minutes. Patient had severe SHARPE episode about 7 days ago but did not seek any medical attention for the same. At present he denies any SHARPE, visual disturbances, focal motor weakness or sensory loss. Denies any speech disturbances. CT head done on admission reported to show left occipital and posterior parietal hypodensity and MRI brain showed acute left occipital and medial temporal stroke. Patient was on ASA at home, lives with his , does drive, does not need any assistance for his ADLs, denies any frequent falls. ] Past Medical History Past Medical History (Chronic Problems): Chronic Problems HTN (hypertension) (Chronic) Allergies Sulfa (Sulfonamide Antibiotics) Allergy (Verified 08/23/17 20:09) Nausea/Vom/Diarrhea Home Medications: Ambulatory Orders Medication Instructions Recorded Aspirin 81 mg PO DAILY 05/01/16 Atorvastatin Calcium [Lipitor] 10 mg PO DAILY 05/01/16 Multivitamin [Animal Shapes] 1 each PO DAILY 05/01/16 Ubidecarenone [Co Q-10] 100 mg PO DAILY 05/01/16 Ascorbic Acid [Vitamin C] 250 mg PO BID 08/23/17 Ferrous Sulfate 325 mg PO BIDCM 08/23/17 Ondansetron [Zofran] 8 mg PO Q8H PRN PRN 08/23/17 Lives: Spouse/ Significant Other Smoking Status: Former smoker Alcohol: None Drugs: None - *Family History Maternal History Items: No pertinent history Review of Systems Constitutional: Reports: - - complete ROS negative except as documented in HPI Patient Problems: Active and Suspected Problems CVA (cerebral vascular accident) (Acute) Lipidemia (Acute) Stroke (Acute) - Physical Exam General: Alert, Oriented x3, Cooperative HEENT: Atraumatic, PERRLA, EOMI, Normocephalic Neck: Supple, No JVD, Negative Carotid Bruits Lungs: Clear to auscultation, Normal air movement Cardiovascular: Regular rate, No murmurs Abdomen: Bowel Sounds Present, Soft, Non Tender Extremities: No edema, Capillary Refill Less than 3 Seconds Skin: No rashes, No breakdown Musculoskeletal: No Tenderness to Palpation of Joints or Extremities Neurological: - - consious, alert, CN 2-12 grossly intact, no homonymous hemianopia at present at the bedside, power 5/5 all 4 extremities, no sensory loss, no cerebellar signs, Reflexes + B/L B/S/T/K/A, gait deferred, NIHSS 0 at present. Psych/Mental Status: Normal Affect, Appropriate Vital Signs Temp Pulse Resp BP Pulse Ox 98.7 F 71 18 142/79 H 98 08/24/17 12:14 08/24/17 12:14 08/24/17 12:14 08/24/17 12:14 08/24/17 12:14 Oxygen Delivery Method Room Air Weight: 61.4 kg Body Mass Index (BMI) 20.0 Orthostatic Vital Signs Start: 08/24/17 04:09 Freq: q24h Status: Active Protocol: Activity Type Activity Date Activity User E-Sign Co-Sign Detail Recorded Client Recorded Date Recorded By Document 08/24/17 04:09 [facility] [id number] 08/24/17 04:12 [facility] 08/24/17 04:09 Orthostatic Vitals Standing -Blood Pressure (90/60-120/80) 108/70 -Extremity Use Right Arm -Pulse Rate (60-100) 83 Sitting -Blood Pressure (90/60-120/80) 128/86 H -Extremity Use Right Arm -Pulse Rate (60-100) 77 Lying -Blood Pressure (90/60-120/80) 125/76 H -Extremity Use Right Arm -Pulse Rate (60-100) 73 Intake and Output for Last 24 Hours 08/22/17 08/23/17 08/24/17 22:59 23:59 23:59 Intake Total 1216 / 1216 Output Total 350 / 350 Balance 866 / 866 Laboratory Tests Past 24 Hrs 08/23/17 08/24/17 08/24/17 23:49 03:54 03:54 WBC 5.6 RBC 3.88 L Hgb 12.1 L Hct 35.3 L MCV 91.0 MCH 31.2 MCHC 34.3 RDW 12.0 RDW Differential 39.6 Plt Count 246 MPV 8.4 Sodium 140 Potassium 3.8 Chloride 106 Carbon Dioxide 24.0 Anion Gap 10 BUN 12 Creatinine 0.59 L Estim Creat Clear Calc 62.25 Est GFR (MDRD) Af Amer 176 Est GFR (MDRD) Non-Af 145 BUN/Creatinine Ratio 20.3 H Glucose 85 Hemoglobin A1c Calcium 8.9 Magnesium Troponin I < 0.02 Triglycerides 48 Cholesterol 87 LDL Cholesterol 23 VLDL Cholesterol 10 HDL Cholesterol 54 08/24/17 08/24/17 08/24/17 03:54 03:54 03:54 WBC RBC Hgb Hct MCV MCH MCHC RDW RDW Differential Plt Count MPV Sodium Potassium Chloride Carbon Dioxide Anion Gap BUN Creatinine Estim Creat Clear Calc Est GFR (MDRD) Af Amer Est GFR (MDRD) Non-Af BUN/Creatinine Ratio Glucose Hemoglobin A1c Pending Calcium Magnesium 2.1 Troponin I < 0.02 Triglycerides Cholesterol LDL Cholesterol VLDL Cholesterol HDL Cholesterol 08/24/17 08/24/17 06:10 09:35 WBC RBC Hgb Hct MCV MCH MCHC RDW RDW Differential Plt Count MPV Sodium Potassium Chloride Carbon Dioxide Anion Gap BUN Creatinine Estim Creat Clear Calc Est GFR (MDRD) Af Amer Est GFR (MDRD) Non-Af BUN/Creatinine Ratio Glucose Hemoglobin A1c Calcium Magnesium Troponin I < 0.02 < 0.02 Triglycerides Cholesterol LDL Cholesterol VLDL Cholesterol HDL Cholesterol Assessment/Plan Active and Suspected Problems CVA (cerebral vascular accident) (Acute) Lipidemia (Acute) Stroke (Acute) The patient is a 67 year old CM with PMH HTN, HLD, oesophageal cancer diagnosed in June 2016, s/p chemoradiation and resection in October 2016 admitted with episode of light headedness and slurred speech lasting for about 4-5 minutes. Patient had severe SHARPE episode about 7 days ago but did not seek any medical attention for the same. At present he denies any SHARPE, visual disturbances, focal motor weakness or sensory loss. Denies any speech disturbances. CT head done on admission reported to show left occipital and posterior parietal hypodensity and MRI brain showed acute left occipital and medial temporal stroke. Patient was on ASA at home, lives with his , does drive, does not need any assistance for his ADLs, denies any frequent falls. Impression Left HELP DESK SUPPORT acute/subacute stroke Plan -Recommend ASA 325 mg PO once daily -On Lipitor 80 mg PO q hs -MRI brain and CT head reviewed -Recommend CTA head/neck -TTE-EF 60%, normal LA size, no PFO -LDL-23, Lee8g-c -Recommend 30 day event recorder on discharge -Recommend Ophthalmology consult as outpatient -Patient counseled not to drive. Will need ophthalmology evaluation and may need OT simulation testing prior to driving clearance given the left occipital stroke -GI/DVT prophylaxis -PT/OT -Follow up with Neurology as outpatient in 2 weeks -Please call with questions if any -Thank you for allowing us to participate in patient's care and management. I spent 60 minutes taking history, doing physical examination, reviewing medical records, coordinating care and counseling patient and his family. Code Visit Inpatient E&M: [id number] Init Hosp L3
--- NOTE | 2017-08-24 14:41 | CASEMGMT ---
Face to Face with patient for initial transition planning/care coordination assessment. RN ALANIS introduced self and role at [facility] [place], pt voices understanding and consents to assessment at this time. Pt sitting up in bed in no distress at this time. Pt A/O x4 at this time and answers all questions appropriately at this time. Care providers, pharmacy, and demographics verified. See attached link. Pt voices no further concerns/needs at this time. Advised pt to ask for CM if any further questions/concerns/needs arise, voices understanding. CM to follow for any further discharge planning/needs. PLAN: [place] [facility] [facility]
--- NOTE | 2017-08-24 14:46 | CASEMGMT ---
Addendum entered by Nelsy Strauss 08/24/17 15:39: Received message from [facility] regarding pt and asking this RN CM to fax clinicals to [phone]. Caity states that her direct extension is [phone]. H&P and progress notes faxed to [facility] at the [facility] at this time. Codi JASSO CM Original Note: Per note, ED did contact [facility] at admission and were told that there were no beds. Message left with [place] transfer center at this time to update them on pt. Codi JASSO CM
[2017-08-24 14:48] LABS: Hemoglobin A1c 5.3 % (4.2-6.3)
[2017-08-24] MEDS: 0.9% NaCl Peripheral Flush Adult/Peds IV (15:43)
[2017-08-24] MEDS: Atorvastatin Calcium 80 MG Tablet PO (20:35)
[2017-08-25] VITALS (8 sets, daily range): BP systolic 92–131; BP diastolic 60–88; PULSE 60–90; RESP 16–18; TEMP 36.6–37.1; O2SAT 98–100
[2017-08-25 06:32] LABS: Absolute Lymphocyte Count 0.99 X10^3/ul (0.83-4.51); Absolute Neutrophil Count 2.7 X10^3/uL (2.0-7.7); Basophil# 0.02 X10^3/uL; Basophil% 0.5 % (0-1); Eosinophil# 0.11 X10^3/uL; Eosinophils% 2.5 % (0-5); Hemoglobin 11.5 g/dl (13.0-16.5); Immature Platelet Fraction 0.8 % (1.0-7.9); Lymphocyte # 0.99 X10^3/ul (4.0); Lymphocyte % 22.5 % (19-41); Mean Corp Hgb Conc 33.8 g/gl (32-36); Mean Corpuscular Hgb 31.1 pg (27.0-32.0); Mean Corpuscular Volume 91.9 fL (80-94); Mean Platelet Vol. 8.7 fl (6.2-12.0); Monocyte# 0.53 X10^3/uL; Neutrophil # 2.74 X10^3/uL (2.7-7.7); Neutrophil % 62.3 % (47-70); Platelet Count 232 K/mm3 (150-450); RBC Distribution Width SD 40.7 fl (35.1-43.9); RET-HE 32.3 pg (30-35); Reticulocyte Count 0.82 % (0.5-1.5); White Blood Count 4.4 K/mm3 (4.4-11.0)
[2017-08-25 06:36] LABS: POSITIVE COUNT NO; POSITIVE DIFFERENTIAL NO; POSITIVE MORPHOLOGY NO
[2017-08-25 07:00] LABS: Ferritin 168 ng/mL (26-388); Iron 154 ug/dL (65-175); Iron Binding Capacity,Total 247 ug/dL (250-450); PERCENT IRON SATURATION 62.3 % (15.0-55.0)
[2017-08-25] MEDS: 0.9% Normal Saline 1,000 ML 100 ML IV (08:21)
[2017-08-25] MEDS: Aspirin 81 MG TAB.CHEW 324 MG PO (08:21)
[2017-08-25] MEDS: Multivitamins,Therapeutic Tablet 1 TABLET PO (08:21)
[2017-08-25] MEDS: Ferrous Sulfate 325 MG Tablet PO (08:21)
[2017-08-25] MEDS: Ondansetron 8 MG Tablet PO (09:49)
[2017-08-25] MEDS: Ascorbic Acid 500 MG Tablet 250 MG PO (09:49)
--- NOTE | 2017-08-25 13:13 | PCM.PN.NEU ---
Patient Problems: Active and Suspected Problems CVA (cerebral vascular accident) (Acute) Lipidemia (Acute) Stroke (Acute) Subjective: NO issues overnight. - Physical Exam General: Alert, Oriented x3, Cooperative HEENT: Atraumatic, PERRLA, EOMI, Normocephalic Neck: Supple, No JVD, Negative Carotid Bruits Lungs: Clear to auscultation, Normal air movement Cardiovascular: Regular rate Abdomen: Bowel Sounds Present, Soft, Non Tender Extremities: No edema, Capillary Refill Less than 3 Seconds Skin: No rashes, No breakdown Musculoskeletal: No Tenderness to Palpation of Joints or Extremities Neurological: - - consious, alert, CN 2-12 grossly intact, no homonymous hemianopia at present at the bedside, power 5/5 all 4 extremities, no sensory loss, no cerebellar signs, Reflexes + B/L B/S/T/K/A, gait deferred, NIHSS 0 at present. Psych/Mental Status: Normal Affect, Appropriate Vital Signs Temp Pulse Resp BP Pulse Ox 98 F 77 16 131/80 H 99 08/25/17 08:30 08/25/17 11:07 08/25/17 08:30 08/25/17 08:30 08/25/17 08:30 Oxygen Delivery Method Room Air Weight: 61.4 kg Body Mass Index (BMI) 20.0 Orthostatic Vital Signs Start: 08/24/17 04:09 Freq: q24h Status: Active Protocol: Activity Type Activity Date Activity User E-Sign Co-Sign Detail Recorded Client Recorded Date Recorded By Document 08/25/17 04:30 [facility] [id number] 08/25/17 04:54 [facility] 08/25/17 04:30 Orthostatic Vitals Standing -Blood Pressure (90/60-120/80) 92/60 -Extremity Use Left Arm -Pulse Rate (60-100) 75 Sitting -Blood Pressure (90/60-120/80) 104/70 -Extremity Use Left Arm -Pulse Rate (60-100) 71 Lying -Blood Pressure (90/60-120/80) 122/88 H -Extremity Use Left Arm -Pulse Rate (60-100) 71 Intake and Output for Last 24 Hours 08/23/17 08/24/17 08/25/17 23:59 23:59 23:59 Intake Total 2554 / 2554 1509 / 1509 Output Total 350 / 350 Balance 2204 / 2204 1509 / 1509 Laboratory Tests Past 24 Hrs 08/24/17 08/25/17 08/25/17 03:54 05:25 05:25 WBC 4.4 RBC 3.70 L Hgb 11.5 L Hct 34.0 L MCV 91.9 MCH 31.1 MCHC 33.8 RDW 12.0 RDW Differential 40.7 Plt Count 232 MPV 8.7 Immature Gran % (Auto) 0.200 Neut % (Auto) 62.3 Lymph % (Auto) 22.5 [place] % (Auto) 12.0 H Eos % (Auto) 2.5 Baso % (Auto) 0.5 Absolute Neuts (auto) 2.7 Absolute Lymphs (auto) 0.99 Total Counted Not Reportable Immature Plt Fraction 0.8 L Retic Count 0.82 Immature Retic Fraction 2.20 L Retic Hgb Equivalent 32.3 Hemoglobin A1c 5.3 Iron 154 TIBC 247 L Iron Saturation 62.3 H Ferritin 168 Assessment/Plan Active and Suspected Problems CVA (cerebral vascular accident) (Acute) Lipidemia (Acute) Stroke (Acute) The patient is a 67 year old CM with PMH HTN, HLD, oesophageal cancer diagnosed in June 2016, s/p chemoradiation and resection in October 2016 admitted with episode of light headedness and slurred speech lasting for about 4-5 minutes. Patient had severe SHARPE episode about 7 days ago but did not seek any medical attention for the same. At present he denies any SHARPE, visual disturbances, focal motor weakness or sensory loss. Denies any speech disturbances. CT head done on admission reported to show left occipital and posterior parietal hypodensity and MRI brain showed acute left occipital and medial temporal stroke. Patient was on ASA at home, lives with his , does drive, does not need any assistance for his ADLs, denies any frequent falls. 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 -May need conventional catheter angiogram if has recurrent symptoms -Repeat CTA head/neck in 3 months -Recommend ASA 81 mg PO once daily and Plavix 75 mg PO once daily. Dual AP for 3 months then switch to single AP. Bleeding rsik discussed in detail -On Lipitor 80 mg PO q hs -MRI brain and CT head reviewed -TTE-EF 60%, normal LA size, no PFO -LDL-23, [id number] -Recommend 30 day event recorder on discharge -Recommend Ophthalmology consult as outpatient -Patient counseled not to drive. Will need ophthalmology evaluation and may need OT simulation testing prior to driving clearance given the left occipital stroke -GI/DVT prophylaxis -PT/OT -Follow up with Neurology as outpatient in 2 weeks -Please call with questions if any -Thank you for allowing us to participate in patient's care and management. I spent 30 minutes taking history, doing physical examination, reviewing medical records, coordinating care and counseling patient and his family.
--- NOTE | 2017-08-25 13:18 | PN.NEURO_ITS ---
Patient Problems: Active and Suspected Problems CVA (cerebral vascular accident) (Acute) Lipidemia (Acute) Stroke (Acute) Subjective: NO issues overnight. - Physical Exam General: Alert, Oriented x3, Cooperative HEENT: Atraumatic, PERRLA, EOMI, Normocephalic Neck: Supple, No JVD, Negative Carotid Bruits Lungs: Clear to auscultation, Normal air movement Cardiovascular: Regular rate Abdomen: Bowel Sounds Present, Soft, Non Tender Extremities: No edema, Capillary Refill Less than 3 Seconds Skin: No rashes, No breakdown Musculoskeletal: No Tenderness to Palpation of Joints or Extremities Neurological: - - consious, alert, CN 2-12 grossly intact, no homonymous hemianopia at present at the bedside, power 5/5 all 4 extremities, no sensory loss, no cerebellar signs, Reflexes + B/L B/S/T/K/A, gait deferred, NIHSS 0 at present. Psych/Mental Status: Normal Affect, Appropriate Vital Signs Temp Pulse Resp BP Pulse Ox 98 F 77 16 131/80 H 99 08/25/17 08:30 08/25/17 11:07 08/25/17 08:30 08/25/17 08:30 08/25/17 08:30 Oxygen Delivery Method Room Air Weight: 61.4 kg Body Mass Index (BMI) 20.0 Orthostatic Vital Signs Start: 08/24/17 04:09 Freq: q24h Status: Active Protocol: Activity Type Activity Date Activity User E-Sign Co-Sign Detail Recorded Client Recorded Date Recorded By Document 08/25/17 04:30 [facility] [id number] 08/25/17 04:54 [facility] 08/25/17 04:30 Orthostatic Vitals Standing -Blood Pressure (90/60-120/80) 92/60 -Extremity Use Left Arm -Pulse Rate (60-100) 75 Sitting -Blood Pressure (90/60-120/80) 104/70 -Extremity Use Left Arm -Pulse Rate (60-100) 71 Lying -Blood Pressure (90/60-120/80) 122/88 H -Extremity Use Left Arm -Pulse Rate (60-100) 71 Intake and Output for Last 24 Hours 08/23/17 08/24/17 08/25/17 23:59 23:59 23:59 Intake Total 2554 / 2554 1509 / 1509 Output Total 350 / 350 Balance 2204 / 2204 1509 / 1509 Laboratory Tests Past 24 Hrs 08/24/17 08/25/17 08/25/17 03:54 05:25 05:25 WBC 4.4 RBC 3.70 L Hgb 11.5 L Hct 34.0 L MCV 91.9 MCH 31.1 MCHC 33.8 RDW 12.0 RDW Differential 40.7 Plt Count 232 MPV 8.7 Immature Gran % (Auto) 0.200 Neut % (Auto) 62.3 Lymph % (Auto) 22.5 [place] % (Auto) 12.0 H Eos % (Auto) 2.5 Baso % (Auto) 0.5 Absolute Neuts (auto) 2.7 Absolute Lymphs (auto) 0.99 Total Counted Not Reportable Immature Plt Fraction 0.8 L Retic Count 0.82 Immature Retic Fraction 2.20 L Retic Hgb Equivalent 32.3 Hemoglobin A1c 5.3 Iron 154 TIBC 247 L Iron Saturation 62.3 H Ferritin 168 Assessment/Plan Active and Suspected Problems CVA (cerebral vascular accident) (Acute) Lipidemia (Acute) Stroke (Acute) The patient is a 67 year old CM with PMH HTN, HLD, oesophageal cancer diagnosed in June 2016, s/p chemoradiation and resection in October 2016 admitted with episode of light headedness and slurred speech lasting for about 4-5 minutes. Patient had severe SHARPE episode about 7 days ago but did not seek any medical attention for the same. At present he denies any SHARPE, visual disturbances, focal motor weakness or sensory loss. Denies any speech disturbances. CT head done on admission reported to show left occipital and posterior parietal hypodensity and MRI brain showed acute left occipital and medial temporal stroke. Patient was on ASA at home, lives with his , does drive, does not need any assistance for his ADLs, denies any frequent falls. 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 -May need conventional catheter angiogram if has recurrent symptoms -Repeat CTA head/neck in 3 months -Recommend ASA 81 mg PO once daily and Plavix 75 mg PO once daily. Dual AP for 3 months then switch to single AP. Bleeding rsik discussed in detail -On Lipitor 80 mg PO q hs -MRI brain and CT head reviewed -TTE-EF 60%, normal LA size, no PFO -LDL-23, [id number] -Recommend 30 day event recorder on discharge -Recommend Ophthalmology consult as outpatient -Patient counseled not to drive. Will need ophthalmology evaluation and may need OT simulation testing prior to driving clearance given the left occipital stroke -GI/DVT prophylaxis -PT/OT -Follow up with Neurology as outpatient in 2 weeks -Please call with questions if any -Thank you for allowing us to participate in patient's care and management. I spent 30 minutes taking history, doing physical examination, reviewing medical records, coordinating care and counseling patient and his family.
--- NOTE | 2017-08-25 14:23 | PCM.DC ---
- Discharge Diagnoses Current Active Problems: Current Active and Chronic Problems CVA (cerebral vascular accident) (Acute) HTN (hypertension) (Chronic) Lipidemia (Acute) Stroke (Acute) You will use the following diet at home:: Cardiac Your food should be the consistency of: Regular Your liquids should be the consistency of: Regular/Thin Discharge Activity: Return to Normal Activity Allergies/Adverse Reactions: Allergies Sulfa (Sulfonamide Antibiotics) Allergy (Verified 08/23/17 20:09) Nausea/Vom/Diarrhea Medications to take at Discharge Aspirin 81 mg PO DAILY 05/01/16 Multivitamin [Animal Shapes] 1 each PO DAILY 05/01/16 Ubidecarenone [Co Q-10] 100 mg PO DAILY 05/01/16 Ascorbic Acid [Vitamin C] 250 mg PO BID 08/23/17 Ferrous Sulfate 325 mg PO BIDCM 08/23/17 Ondansetron [Zofran] 8 mg PO Q8H PRN PRN 08/23/17 Atorvastatin Calcium [Lipitor] 80 mg PO DAILY@2200 #30 tab 08/25/17 Clopidogrel Bisulfate [Plavix] 75 mg PO DAILY #30 tab 08/25/17 The following prescriptions were given: Atorvastatin Calcium [Lipitor] 80 mg PO DAILY@2200 #30 tab Clopidogrel Bisulfate [Plavix] 75 mg PO DAILY #30 tab Primary Care Physician: Care Physician,No Primary [NON-STAFF] - Please follow up with your Primary Care Physician in: 1-2 weeks Please Follow Up With: Daisy Means MD When: 2 weeks Proposed Discharge Date: 08/25/17
--- NOTE | 2017-08-25 14:37 | PCM.DC.SUM ---
Discharge Date and Diagnosis - Problem List Patient Problems: Active and Suspected Problems CVA (cerebral vascular accident) (Acute) Lipidemia (Acute) Stroke (Acute) Date of Admission: 08/23/17 Date of Discharge: 08/25/17 - Primary Discharge Diagnosis Active and Suspected Problems Acute vs subacute left ABRASIVE GRADER stroke paroxysmal supraventricular tachycardia Carotid artery stenosis Normocytic anemia Hx Esophageal Cancer - Secondary Discharge Diagnosis Chronic Problems HTN (hypertension) (Chronic) Hospital Course and Treatment Imaging Results: CT/Brain/Head without Contrast IMPRESSION: There is asymmetric hypodensity in the left occipital and posterior parietal lobes, worrisome for acute or subacute ischemia. There is no acute hemorrhage. MRI/Brain without Contrast IMPRESSION: 1. Involutional changes of the brain, as described above. 2. Acute left posterior cerebral artery territory infarct. RAD/Chest 1 View IMPRESSION: No acute cardiopulmonary abnormalities or changes. Carotid artery ultrasound: Interpretation Summary No significant atherosclerotic plaque or stenosis noted in the right internal carotid artery. Mild (<50%) stenosis left extracranial internal carotid. Flow within the vertebral arteries is antegrade bilaterally. Echo: Interpretation Summary Normal LV size. Left ventricular systolic function is normal. The estimated ejection fraction is 60 %. Bubble contrast study negative for right to left interatrial shunt. Mild tricuspid valve insufficiency. Pulmonary artery systolic pressure is [address]/CTA Head W/WO Contrast IMPRESSION: There is clot in the distal basilar artery on the right side extending into the proximal right superior cerebellar artery. This vessel then reconstitutes in the mid aspect by collaterals. No other clot is seen. The left posterior cerebral artery is patent. CT/CTA Neck W/WO Contrast IMPRESSION: 1. Probable occlusion and possible thrombosis of the right vertebral artery. 2. Possible hemodynamically significant stenosis of the origin of the left vertebral artery. 3. Hemodynamically significant stenosis of the proximal left internal carotid artery. Consultations: [facility] - Neuro Operations: None Procedures: 2-D Echocardiogram Summary of Care Provided: Physical exam on day of discharge: General: Resting comfortably NAD Psych: A/Ox3 normal affect HEENT: PEARRLA AT NC Neck: Supple NT CV: RRR no m/t/r/g/h Resp: CTA Abd: [id number] Soft NT no guarding or rigidity Ext: DP2+= no edema Skin: W/D normal turgor Lymph/Heme: No active bleeding or adenopathy Neuro: CN2-12 intact Hospital course: The patient is a 67 year old M with a history of hypertension, esophageal cancer status post esophagectomy in October 2016 and chemoradiation, hyperlipidemia who presented to the emergency room with chief complaint of lightheadedness, slurred speech, and a week prior he had a severe headache. In the ER he had a CT of the brain which was negative. He was admitted for stroke workup. He underwent MRI of the brain which did reveal acute left posterior cerebral artery territory infarct, involutional changes of the brain. Neurology was consulted. He also had a single episode of supraventricular tachycardia on the heart monitor overnight. This did not recur. Troponin negative x 4. He underwent echocardiogram which was unremarkable. He had CTA of the head and neck which revealed significant disease including a clot in the distal basilar artery on the right side extending in the proximal right superior cerebellar artery with collaterals, probable occlusion and possible thrombosis of the right vertebral artery, possible hemodynamically significant stenosis of the origin of the left vertebral artery, hemodynamically significant stenosis of the proximal left internal carotid artery. The patient's statin therapy was maximized, aspirin continued, and Plavix added. He did well with PT OT and ST. He had no recurrence of his presenting symptoms. He remained in stable condition and he was advised to follow-up with neurology in 2 weeks, advised that he would need repeat imaging in 3 months, advised to follow-up with his PCP in 1-2 weeks. Neurology also recommends he have a Holter monitor placed. He is discharged home in stable condition. This patient was seen by Lincoln Cosby PA-C under the supervision of Doctor Hines. [] Discharge Diet: Low fat/ Low Cholesterol, 2000 mg Sodium Diet Discharge Activity: Return to Normal Activity Home Medications: Medications to take at Discharge Aspirin 81 mg PO DAILY 05/01/16 Multivitamin [Animal Shapes] 1 each PO DAILY 05/01/16 Ubidecarenone [Co Q-10] 100 mg PO DAILY 05/01/16 Ascorbic Acid [Vitamin C] 250 mg PO BID 08/23/17 Ferrous Sulfate 325 mg PO BIDCM 08/23/17 Ondansetron [Zofran] 8 mg PO Q8H PRN PRN 08/23/17 Atorvastatin Calcium [Lipitor] 80 mg PO DAILY@2200 #30 tab 08/25/17 Clopidogrel Bisulfate [Plavix] 75 mg PO DAILY #30 tab 08/25/17 Following Prescrptions Were Given to Patient: Atorvastatin Calcium [Lipitor] 80 mg PO DAILY@2200 #30 tab Clopidogrel Bisulfate [Plavix] 75 mg PO DAILY #30 tab Primary Care Physician: Care Physician,No Primary [NON-STAFF] - Please follow up with your Primary Care Physician in: 1-2 weeks Please Follow Up With: Daisy Means MD When: 2 weeks Disposition: Home Minutes spent on discharge:: 40 Patient Condition:: Stable Meaningful Use Info Meaningful Use Diagnoses (Choose all that apply): Ischemic CVA - CVA Therapy Assessed for PT,OT and/or ST?: Yes - Ischemic Stroke Antithrombotic order at d/c?: Yes Dx of Atrial fib/flutter?: No Anticoagulant at discharge?: No Reason anticoagulant not ordered: Procedure not Indicated Statins at discharge?: Yes Primary Dx Acute Ischemic CVA?: Yes IV tPA ordered during stay?: No Reason IV t-PA not ordered: Procedure not Indicated
--- NOTE | 2017-08-25 14:49 | DS.PCM_ITS ---
Discharge Date and Diagnosis - Problem List Patient Problems: Active and Suspected Problems CVA (cerebral vascular accident) (Acute) Lipidemia (Acute) Stroke (Acute) Date of Admission: 08/23/17 Date of Discharge: 08/25/17 - Primary Discharge Diagnosis Active and Suspected Problems Acute vs subacute left NURSES AIDE stroke paroxysmal supraventricular tachycardia Carotid artery stenosis Normocytic anemia Hx Esophageal Cancer - Secondary Discharge Diagnosis Chronic Problems HTN (hypertension) (Chronic) Hospital Course and Treatment Imaging Results: CT/Brain/Head without Contrast IMPRESSION: There is asymmetric hypodensity in the left occipital and posterior parietal lobes, worrisome for acute or subacute ischemia. There is no acute hemorrhage. MRI/Brain without Contrast IMPRESSION: 1. Involutional changes of the brain, as described above. 2. Acute left posterior cerebral artery territory infarct. RAD/Chest 1 View IMPRESSION: No acute cardiopulmonary abnormalities or changes. Carotid artery ultrasound: Interpretation Summary No significant atherosclerotic plaque or stenosis noted in the right internal carotid artery. Mild (<50%) stenosis left extracranial internal carotid. Flow within the vertebral arteries is antegrade bilaterally. Echo: Interpretation Summary Normal LV size. Left ventricular systolic function is normal. The estimated ejection fraction is 60 %. Bubble contrast study negative for right to left interatrial shunt. Mild tricuspid valve insufficiency. Pulmonary artery systolic pressure is [address]/CTA Head W/WO Contrast IMPRESSION: There is clot in the distal basilar artery on the right side extending into the proximal right superior cerebellar artery. This vessel then reconstitutes in the mid aspect by collaterals. No other clot is seen. The left posterior cerebral artery is patent. CT/CTA Neck W/WO Contrast IMPRESSION: 1. Probable occlusion and possible thrombosis of the right vertebral artery. 2. Possible hemodynamically significant stenosis of the origin of the left vertebral artery. 3. Hemodynamically significant stenosis of the proximal left internal carotid artery. Consultations: [facility] - Neuro Operations: None Procedures: 2-D Echocardiogram Summary of Care Provided: Physical exam on day of discharge: General: Resting comfortably NAD Psych: A/Ox3 normal affect HEENT: [place]ARRLA AT NC Neck: Supple NT CV: RRR no m/t/r/g/h Resp: CTA Abd: [id number] Soft NT no guarding or rigidity Ext: DP2+= no edema Skin: W/D normal turgor Lymph/Heme: No active bleeding or adenopathy Neuro: CN2-12 intact Hospital course: The patient is a 67 year old M with a history of hypertension, esophageal cancer status post esophagectomy in October 2016 and chemoradiation, hyperlipidemia who presented to the emergency room with chief complaint of lightheadedness, slurred speech, and a week prior he had a severe headache. In the ER he had a CT of the brain which was negative. He was admitted for stroke workup. He underwent MRI of the brain which did reveal acute left posterior cerebral artery territory infarct, involutional changes of the brain. Neurology was consulted. He also had a single episode of supraventricular tachycardia on the heart monitor overnight. This did not recur. Troponin negative x 4. He underwent echocardiogram which was unremarkable. He had CTA of the head and neck which revealed significant disease including a clot in the distal basilar artery on the right side extending in the proximal right superior cerebellar artery with collaterals, probable occlusion and possible thrombosis of the right vertebral artery, possible hemodynamically significant stenosis of the origin of the left vertebral artery, hemodynamically significant stenosis of the proximal left internal carotid artery. The patient's statin therapy was maximized, aspirin continued, and Plavix added. He did well with PT OT and ST. He had no recurrence of his presenting symptoms. He remained in stable condition and he was advised to follow-up with neurology in 2 weeks, advised that he would need repeat imaging in 3 months, advised to follow-up with his PCP in 1-2 weeks. Neurology also recommends he have a Holter monitor placed. He is discharged home in stable condition. This patient was seen by Lincoln Cosby PA-C under the supervision of Doctor Hines. [] Discharge Diet: Low fat/ Low Cholesterol, 2000 mg Sodium Diet Discharge Activity: Return to Normal Activity Home Medications: Medications to take at Discharge Aspirin 81 mg PO DAILY 05/01/16 Multivitamin [Animal Shapes] 1 each PO DAILY 05/01/16 Ubidecarenone [Co Q-10] 100 mg PO DAILY 05/01/16 Ascorbic Acid [Vitamin C] 250 mg PO BID 08/23/17 Ferrous Sulfate 325 mg PO BIDCM 08/23/17 Ondansetron [Zofran] 8 mg PO Q8H PRN PRN 08/23/17 Atorvastatin Calcium [Lipitor] 80 mg PO DAILY@2200 #30 tab 08/25/17 Clopidogrel Bisulfate [Plavix] 75 mg PO DAILY #30 tab 08/25/17 Following Prescrptions Were Given to Patient: Atorvastatin Calcium [Lipitor] 80 mg PO DAILY@2200 #30 tab Clopidogrel Bisulfate [Plavix] 75 mg PO DAILY #30 tab Primary Care Physician: Care Physician,No Primary [NON-STAFF] - Please follow up with your Primary Care Physician in: 1-2 weeks Please Follow Up With: Daisy Means MD When: 2 weeks Disposition: Home Minutes spent on discharge:: 40 Patient Condition:: Stable Meaningful Use Info Meaningful Use Diagnoses (Choose all that apply): Ischemic CVA - CVA Therapy Assessed for PT,OT and/or ST?: Yes - Ischemic Stroke Antithrombotic order at d/c?: Yes Dx of Atrial fib/flutter?: No Anticoagulant at discharge?: No Reason anticoagulant not ordered: Procedure not Indicated Statins at discharge?: Yes Primary Dx Acute Ischemic CVA?: Yes IV tPA ordered during stay?: No Reason IV t-PA not ordered: Procedure not Indicated
--- NOTE | 2017-08-25 15:11 | CASEMGMT ---
Order placed for pt to be discharged. Copy of discharge summary and instructions faxed to [facility] at this time to previously provided number. Codi JASSO CM
== END 2017-08-25 16:11 | disposition home or self-care (01) | DRG 65 ==
LOC: ED 22:09 → PCU 22:59
PROVIDERS: Physician Assistant; Psychiatry & Neurology Neurology; Admitting Provider Internal Medicine; Emergency Provider Emergency Medicine; Visit Provider Internal Medicine
DX: I63.532 Cerebral infarction due to unspecified occlusion or stenosis of left posterior cerebral artery (principal); I47.1 Supraventricular tachycardia; I10 Essential (primary) hypertension; R47.81 Slurred speech; D64.9 Anemia, unspecified; I45.10 Unspecified right bundle-branch block; I65.22 Occlusion and stenosis of left carotid artery; E78.5 Hyperlipidemia, unspecified; Z85.01 Personal history of malignant neoplasm of esophagus; Z79.899 Other long term (current) drug therapy; Z87.891 Personal history of nicotine dependence; Z92.21 Personal history of antineoplastic chemotherapy; Z92.3 Personal history of irradiation; Z79.82 Long term (current) use of aspirin; Z90.49 Acquired absence of other specified parts of digestive tract
CPT/HCPCS: 36415; 70450; 70496; 70498; 70551; 71045; 80048; 80061; 82728; 83036; 83540; 83550; 83735; 84484; 85025; 85027; 85045; 85610; 85730; 92507; 92523; 93005; 93306; 93880; 97161; 97166; 97802; 99284; J7030; Q9967; A4216

== ENCOUNTER → 2017-09-22 12:57 | Outpatient (CLI) | payer MEDICARE, SELFPAY ==
--- NOTE | 2017-09-22 12:59 | CT_ITS ---
STUDY: CTA OF THE BRAIN REASON FOR EXAM: Male, 67 years old. LEFT ICA STENOSIS, STROKE RADIATION DOSAGE (If Supplied By Facility): CTDIvol = ( 30.19 ) mGy, DLP = ( 1444.68 ) mGycm TECHNIQUE: CT angiography was performed with a multi-detector CT scanner. Data acquisition was obtained from the skull base through the vertex following intravenous administration of 100 ml of ISO 370. MIP images were reconstructed from the axial data set. Post-processing of the angiographic images was performed, with multiplanar reformation and 3D reconstruction. Individualized dose optimization techniques were used for this CT. COMPARISON: 08.24.17 FINDINGS: Normal bilateral petrous carotid arteries. There is calcified plaque formation of the right cavernous carotid artery, without a cross-sectional luminal stenosis. There is calcified plaque formation of the left cavernous carotid artery, without a cross-sectional luminal stenosis. Normal right A1 segments of the anterior cerebral artery. Normal left A1 segments of the anterior cerebral artery. Normal intact anterior communicating artery (ACOM). Normal bilateral A2 segments of the anterior cerebral arteries. Normal right M1 and M2 segments of the middle cerebral arteries, with a normal M1 bifurcation. Normal left M1 and M2 segments of the middle cerebral arteries, with a normal M1 bifurcation. Normal right posterior communicating artery (PCOM). Normal left posterior communicating artery (PCOM). Normal bilateral vertebral arteries. Normal basilar artery with a normal basilar bifurcation. The visualized bilateral superior cerebellar (SCA) arteries are normal. Normal bilateral P1, P2 and visualized P3 segments of the posterior cerebral arteries. There is no demonstrated aneurysm of the [place] of [place]. Old left occipital lobe infarct. IMPRESSION: There are calcifications around the cavernous carotid arteries. This is consistent for atherosclerotic disease. No hemodynamically significant stenosis Electronically Signed: Osito Santos MD at 16:22 EDT , Service support , STUDY: CTA NECK WITH CONTRAST REASON FOR EXAM: Male, 67 years old. LEFT ICA STENOSIS, STROKE RADIATION DOSAGE (If Supplied By Facility): CTDIvol = ( 30.19 ) mGy, DLP = ( 1444.68 ) mGycm TECHNIQUE: CT angiography with multi-detector data acquisition was performed from the aortic arch to the skull base following intravenous administration of 100 ml of Isovue 370 contrast. MIP images were reconstructed from the axial data set. Post-processing of the angiographic images was performed, with multiplanar reformation and 3D reconstruction. COMPARISON: CTA Carotid Arteries Bilateral Aug 24 2017 2:48pm FINDINGS: AORTIC ARCH: There is atherosclerotic calcific plaque formation of the aortic arch and great vessels arising from the aortic arch, without a hemodynamically significant stenosis. There is a normal origin of the brachiocephalic, left common carotid, and left subclavian arteries. Normal origins of the brachiocephalic, left common carotid, and left subclavian arteries. RIGHT CAROTID ARTERIES: Normal right common carotid artery (CCA). Normal right common carotid bulb. Normal origin of the right internal carotid (ICA) artery without a hemodynamically significant stenosis. Normal visualized cervical portion of the right internal carotid artery. Normal origin of the right external carotid artery (ECA). LEFT CAROTID ARTERIES: Normal left common carotid artery (CCA). Normal left common carotid bulb. There is mild atherosclerotic plaque formation of the origin of the left internal carotid artery with less than 50% cross sectional diameter stenosis. Normal visualized cervical portion of the left internal carotid artery. Normal origin of the left external carotid artery (ECA). VERTEBRAL ARTERIES: Normal bilateral vertebral arteries. CT/CTA Head W/WO Contrast IMPRESSION: There is mild atherosclerotic plaque formation of the origin of the left internal carotid artery with less than 50% cross sectional diameter stenosis. Normal origin of the right internal carotid (ICA) artery without a hemodynamically significant stenosis. Electronically Signed: Osito Santos MD at 16:22 EDT , Service support ,
--- NOTE | 2017-09-22 13:00 | CT_ITS ---
STUDY: CTA OF THE BRAIN REASON FOR EXAM: Male, 67 years old. LEFT ICA STENOSIS, STROKE RADIATION DOSAGE (If Supplied By Facility): CTDIvol = ( 30.19 ) mGy, DLP = ( 1444.68 ) mGycm TECHNIQUE: CT angiography was performed with a multi-detector CT scanner. Data acquisition was obtained from the skull base through the vertex following intravenous administration of 100 ml of ISO 370. MIP images were reconstructed from the axial data set. Post-processing of the angiographic images was performed, with multiplanar reformation and 3D reconstruction. Individualized dose optimization techniques were used for this CT. COMPARISON: 08.24.17 FINDINGS: Normal bilateral petrous carotid arteries. There is calcified plaque formation of the right cavernous carotid artery, without a cross-sectional luminal stenosis. There is calcified plaque formation of the left cavernous carotid artery, without a cross-sectional luminal stenosis. Normal right A1 segments of the anterior cerebral artery. Normal left A1 segments of the anterior cerebral artery. Normal intact anterior communicating artery (ACOM). Normal bilateral A2 segments of the anterior cerebral arteries. Normal right M1 and M2 segments of the middle cerebral arteries, with a normal M1 bifurcation. Normal left M1 and M2 segments of the middle cerebral arteries, with a normal M1 bifurcation. Normal right posterior communicating artery (PCOM). Normal left posterior communicating artery (PCOM). Normal bilateral vertebral arteries. Normal basilar artery with a normal basilar bifurcation. The visualized bilateral superior cerebellar (SCA) arteries are normal. Normal bilateral P1, P2 and visualized P3 segments of the posterior cerebral arteries. There is no demonstrated aneurysm of the [place] of [place]. Old left occipital lobe infarct. IMPRESSION: There are calcifications around the cavernous carotid arteries. This is consistent for atherosclerotic disease. No hemodynamically significant stenosis Electronically Signed: Osito Santos MD at 16:22 EDT , Service support , STUDY: CTA NECK WITH CONTRAST REASON FOR EXAM: Male, 67 years old. LEFT ICA STENOSIS, STROKE RADIATION DOSAGE (If Supplied By Facility): CTDIvol = ( 30.19 ) mGy, DLP = ( 1444.68 ) mGycm TECHNIQUE: CT angiography with multi-detector data acquisition was performed from the aortic arch to the skull base following intravenous administration of 100 ml of Isovue 370 contrast. MIP images were reconstructed from the axial data set. Post-processing of the angiographic images was performed, with multiplanar reformation and 3D reconstruction. COMPARISON: CTA Carotid Arteries Bilateral Aug 24 2017 2:48pm FINDINGS: AORTIC ARCH: There is atherosclerotic calcific plaque formation of the aortic arch and great vessels arising from the aortic arch, without a hemodynamically significant stenosis. There is a normal origin of the brachiocephalic, left common carotid, and left subclavian arteries. Normal origins of the brachiocephalic, left common carotid, and left subclavian arteries. RIGHT CAROTID ARTERIES: Normal right common carotid artery (CCA). Normal right common carotid bulb. Normal origin of the right internal carotid (ICA) artery without a hemodynamically significant stenosis. Normal visualized cervical portion of the right internal carotid artery. Normal origin of the right external carotid artery (ECA). LEFT CAROTID ARTERIES: Normal left common carotid artery (CCA). Normal left common carotid bulb. There is mild atherosclerotic plaque formation of the origin of the left internal carotid artery with less than 50% cross sectional diameter stenosis. Normal visualized cervical portion of the left internal carotid artery. Normal origin of the left external carotid artery (ECA). VERTEBRAL ARTERIES: Normal bilateral vertebral arteries. CT/CTA Neck W/WO Contrast IMPRESSION: There is mild atherosclerotic plaque formation of the origin of the left internal carotid artery with less than 50% cross sectional diameter stenosis. Normal origin of the right internal carotid (ICA) artery without a hemodynamically significant stenosis. Electronically Signed: Osito Santos MD at 16:22 EDT , Service support ,
== END ==
PROVIDERS: Visit Provider Nurse Practitioner Acute Care
DX: I65.22 Occlusion and stenosis of left carotid artery (principal); Z86.73 Personal history of transient ischemic attack (TIA), and cerebral infarction without residual deficits
CPT/HCPCS: 70496; 70498; Q9967

== ENCOUNTER 2019-12-12 07:57 | Emergency (ER) | payer OTHER, MEDICARE, SELFPAY ==
[2019-12-12] VITALS (7 sets, daily range): BP systolic 82–125; BP diastolic 58–77; PULSE 82–101; RESP 11–18; TEMP 36.3; O2SAT 99–995; BMI 20.3
--- NOTE | 2019-12-12 08:19 | EKG12_ITS ---
Test Reason : Blood Pressure : / mmHG Vent. Rate : 095 BPM Atrial Rate : 095 BPM P-R Int : 146 ms QRS Dur : 114 ms QT Int : 362 ms P-R-T Axes : 083 084 064 degrees QTc Int : 454 ms Normal sinus rhythm Normal ECG Confirmed by VIVIANA MARSH ([id number]), map editor RAFAEL LEYVA ([id number]) on 12/15/2019 11:54:23 AM Referred By: JOSE ANTONIO Confirmed By:VIVIANA MARSH
--- NOTE | 2019-12-12 08:21 | CT_ITS ---
STUDY: CT BRAIN WITHOUT CONTRAST REASON FOR EXAM: Male, 69 years old. WEAKNESS, ESOPHAGEAL CANCER RADIATION DOSAGE (If Supplied By Facility): CTDIvol = ( 44.99 ) mGy, DLP = ( 796.11 ) mGycm TECHNIQUE: Transaxial CT imaging of the brain was performed without administration of intravenous contrast material. Individualized dose optimization techniques were used for this CT. COMPARISON: Comparison is made with prior study dated August 23, 2017. FINDINGS: Normal soft tissue structures. Normal calvarium. There is mild cerebral atrophy with widening of the extra-axial spaces and ventricular dilatation. Focal encephalomalacia in the posterior medial aspect of the left occipital lobe. Normal basal ganglia and thalami. Normal brainstem. Normal cerebellum. There is no intracranial hemorrhage. There are no findings of an acute ischemic infarction. Normal visualized paranasal sinuses. CT/Brain/Head without Contrast IMPRESSION: Chronic involutional changes of the brain. Focal encephalomalacia in the posterior medial aspect of the left occipital lobe. Electronically Signed: Ryan Dominguez, at 9:51 EDT , Service support ,
--- NOTE | 2019-12-12 08:35 | RAD_ITS ---
STUDY: X-RAY CHEST REASON FOR EXAM: Male, 69 years old. Abd pain with nausea. Mild weakness TECHNIQUE: Single AP portable view of the chest. COMPARISON: Comparison is made with prior examination dated August 23, 2017. FINDINGS: Hyperinflation. Scattered calcified granulomas. The lungs are clear. There is no demonstrated pleural abnormality. Normal size heart. Normal mediastinum and robbi. Normal visualized pulmonary arteries. Normal visualized aortic arch and descending thoracic aorta. Normal visualized thoracic spine. Normal visualized ribs, clavicles, and shoulders. There is no demonstrated abnormality of the visualized soft tissue structures of the upper abdomen. RAD/Chest 1 View (Portable) IMPRESSION: Hyperinflation. The lungs are clear. Electronically Signed: Ryan Dominguez, at 9:15 EDT , Service support ,
[2019-12-12 09:14] LABS: Absolute Lymphocyte Count 0.71 X10^3/uL (0.83-4.51); Basophil# 0.01 X10^3/uL; Basophil% 0.1 % (0-1); Eosinophil# 0.01 X10^3/uL; Eosinophils% 0.1 % (0-5); Hematocrit 33.1 % (40-54); Hemoglobin 10.8 g/dL (13.0-16.5); Lymphocyte # 0.71 X10^3/ul (4.0); Lymphocyte % 7.8 % (19-41); Mean Corp Hgb Conc 32.6 g/dL (32-36); Mean Corpuscular Hgb 31.2 pg (27.0-32.0); Mean Corpuscular Volume 95.7 fL (80-94); Mean Platelet Vol. 9.3 fl (6.2-12.0); Monocyte# 0.37 X10^3/uL; Monocyte% 4.1 % (0-10); NRBC Flagged by Analyzer 0 % (0-5); Neutrophil # 7.97 X10^3/uL (2.7-7.7); Neutrophil % 87.4 % (47-70); Platelet Count 287 K/mm3 (150-450); RBC Distribution Width CV 12.3 % (11.6-14.6); RBC Distribution Width SD 42.8 fl (35.1-43.9); Red Blood Count 3.46 M/mm3 (4.6-6.2); White Blood Count 9.1 K/mm3 (4.4-11.0)
[2019-12-12] MEDS: Ondansetron 4 MG/2 ML Vial IV ×2 (09:23→11:57)
[2019-12-12 09:33] LABS: Bacteria 0 SEEN /hpf (None Seen); Mucous, Urine 0 SEEN /hpf (<or=2+); Red Blood Cells-Urine 0 SEEN /hpf (0-5); Squamous Epithelial Cells - UA 0 SEEN /hpf (0-5); White Blood Cells 0 SEEN /hpf (0-5)
[2019-12-12 09:37] LABS: AST(SGOT) 10 U/L (15-37); Alanine Aminotransfer ALT/SGPT 21 U/L (16-61); Albumin, Serum 3.6 g/dL (3.2-5.0); Alkaline Phosphatase 81 U/L (45-117); Anion Gap 6 (5-15); BUN 56 mg/dL (7-18); BUN/Creat Ratio 70.3 RATIO (10-20); Calcium,Total 9.1 mg/dL (8.5-10.1); Chloride 107 mmol/L (98-107); EST Glomerular Filtration Rate 102 mL/min (>60); Est Glom Filt Rate - Afr Amer 124 mL/min (>60); Estimated Creatinine Clearance 77.16 ml/min; Globulin 3.5 g/dL (2.2-4.2); Glucose 101 mg/dL (74-106); Lipase 50 U/L (73-393); Potassium 4.4 mmol/L (3.5-5.1); Protein, Total 7.1 g/dL (6.4-8.2); Sodium Level 139 mmol/L (136-145)
[2019-12-12 09:42] LABS: Color, Urine Yellow (Yellow); Glucose, Dipstick Normal (Normal); Ketone-Dipstick 5 mg/dl (Negative); Leukocyte Esterase-Dipstick Negative /ul (Negative); Nitrite-Dipstick Negative (Negative); Occult Blood-Urine Negative /ul (Negative); Protein-Dipstick Negative (Negative); Specific Gravity, Urine 1.015 (1.002-1.030); Urine Bilirubin Dipstick Negative (Negative); Urine Clarity Clear (Clear); Urine Urobilinogen Normal (Normal)
[2019-12-12 09:50] LABS: International Normalized Ratio 1.2; Partial Thromboplast Time 23.7 Seconds (24.1-36.2); Prothrombin Time (Protime)PT. 14.4 SECONDS (11.7-14.9)
[2019-12-12] MEDS: 0.9% Normal Saline 1,000 ML 1000 ML IV ×2 (11:42→12:45)
--- NOTE | 2019-12-12 13:26 | ED.DCSUM_ITS ---
- ER Visit Summary Date of Service: 12/12/19 Chief Complaint: Abdominal pain, and nausea History of Present Illness: The patient is a 69 M who presents with abdominal pain and nausea for the past 2 weeks. Patient states the pain is aching and cramping. Patient states the pain is diffuse. Patient admits to nausea but denies any vomiting. Patient states he has a history of esophageal cancer and has had a graft in his lower esophagus and does not vomit anymore. Patient denies any diarrhea. Patient denies any melena or hematochezia. Patient denies any dysuria or hematuria. Patient denies any chest pain or shortness of breath. states that this morning the patient had a near syncopal episode where he fell and she fell with him. states that when he fell he had a blank stare afterwards for a few seconds. denies any complete loss of consciousness. Physical Examination: Vital signs are stable except for mild hypotension of 90/58. Patient is afebrile. Patient is in no acute distress. Oral mucosa is pink and moist. Neck is supple. Trachea is midline. There is no JVD. Heart was regular rate and rhythm. Lungs are clear and equal bilaterally. Abdomen is soft. There is some mild diffuse tenderness. There is no rebound or guarding noted. There is no distention noted. Cranial nerves II through XII are intact. There are no motor or sensory deficits noted. Extremities are intact. There is no calf tenderness or edema. Test Results: EKG showed normal sinus rhythm with a rate of 95. There are no acute ST or T wave changes. CBC showed a slight anemia with a hemoglobin of 10.8 and hematocrit 33.1. These were consistent with prior results. Comprehensive metabolic profile showed an elevated BUN of 56 but creatinine was normal. Lipase was normal. PT with INR and PTT were within normal limits. Troponin was normal. Portable chest x-ray was obtained. There is no acute cardiopulmonary process. CT scan of the brain was obtained. There is no acute intracranial abnormality. Emergency Department Course and Treatment: Patient was given IV fluids and Zofran here. Patient's blood pressure improved to 125/77. Patient requested a repeat dose of Zofran. This was ordered. Patient was feeling better on reevaluation. Patient states he has Zofran 8 mg at home which does not help much. Patient was given a prescription for Phenergan. Patient was instructed to start with a bland diet and advance as tolerated. Patient was instructed to follow-up with his primary care physician in 5 to 7 days. Patient understood and was agreeable with the plan. All questions were answered. Disposition: Discharge home Impression: Dehydration This note was generated with [employer] dictation software. It may contain incorrect words, spelling, and punctuation that were not noted in review of the chart prior to signing ED Disposition - Plan for ED Patient: Disposition: Home or Assisted Living Diagnosis: Dehydration Instructions: ED Dehydration Adult, ED Unknown Causes of Abdominal Pain Male Prescriptions: proMETHazine tablet [Phenergan tablet] 25 mg PO Q6H PRN PRN #20 tab PRN Reason: Nausea Prescription Printed [facility] [Primary [facility] Provider] - 3-5 Days
== END 2019-12-12 14:00 | disposition home or self-care (01) ==
PROVIDERS: Emergency Provider Emergency Medicine
DX: E86.0 Dehydration (principal); E78.00 Pure hypercholesterolemia, unspecified; Z85.01 Personal history of malignant neoplasm of esophagus; Z79.02 Long term (current) use of antithrombotics/antiplatelets; Z79.899 Other long term (current) drug therapy
CPT/HCPCS: 70450; 71045; 80053; 81001; 83690; 84484; 85025; 85610; 85730; 93005; 96361; 96374; 96376; 99285; J7030; A4216; J2405

== ENCOUNTER → 2025-01-09 | Outpatient (CLI) | payer OTHER, SELFPAY ==
--- NOTE | 2025-01-09 09:14 | NM_ITS ---
PROCEDURE: GASTRIC EMPTYING STUDY - 4 HR 01/09/2025 REASON FOR EXAM: DUMPING COMPARISON: None. TECHNIQUE: The patient ingested a standard solid meal egg sandwich with 2 slices of bread, 2 eggs, 2 pads of butter, and 6 oz of water.. There was no vomiting postprandially. Anterior and posterior planar images of the upper abdomen were obtained for 1 minute immediately following the meal at 1h, 2h and 4h if more than 10% of the activity persisted within the stomach. Regions of interest were drawn, and a geometric mean was used to calculate a [id number]. Fasting Blood Glucose (if diabetic): mg/dL. Medications taken in the past 24 hours that may affect gastric emptying: None RADIOPHARMACEUTICAL: Technetium 99 M sulfur colloid DOSE 1.1mCi orally with the solid meal FINDINGS: During the time of imaging, gastroesophageal reflux was not visualized. Percent activity remaining in stomach: 61 minutes: 30 % (normal 37-90%) 2 hours: 27 % (normal 30-60%) 4 hours: 5 % (normal 0-10%) NM/Gastric Emptying Study - 4 HR IMPRESSION: Abnormally rapid gastric emptying noted at the 1 hour and 2 hour timeframes. Reading Location: [place] [id number]
== END | disposition home or self-care (01) ==
LOC: NM 09:09
DX: R11.0 Nausea (principal)
CPT/HCPCS: 78264; A9541